=== PATIENT | female | born 1995 | race Caucasian/White ===

== ENCOUNTER 2017-02-09 13:01 | Emergency (ER) | payer OTHER ==
[~2017-02-09 13:01] MED LIST: Iopamidol 370 76% 100 ML VIAL ONE
[2017-02-09 13:52] LABS: #Basophils 0.1 thou/uL (0.0-0.2); #Eosinphils 0.1 thou/uL (0.0-0.7); #Lymphocytes 1.4 thou/uL (1.20-3.40); #Monocytes 0.6 thou/uL (0.11-0.59); #Neutrophils 12.4 thou/uL (1.40-6.50); %Basophils 0.5 % (0.0-1.0); %Eosinophils 0.8 % (0.0-10.0); %Lymphocytes 9.8 % (21.0-51.0); %Monocytes 3.9 % (0.0-10.0); %Neutrophils 84.9 % (42.0-75.0); Hemoglobin 14.1 g/dL (12.0-16.0); Mean Corpuscular Hemoglobin 27.5 pg (27.0-31.0); Mean Corpuscular Volume 85.9 fl (81.0-99.0); Mean Platelet Volume 10.2 fL (7.4-10.4); Platelet Count 207 thou/uL (130-400); RBC Distribution Width 12.4 % (11.5-14.5); Red Blood Cell (RBC) Count 5.12 mill/uL (4.20-5.40); White Blood Cell (WBC) Count 14.6 thou/uL (4.8-10.8)
--- NOTE | 2017-02-09 13:55 | RAD ---
PA AND LATERAL VIEWS OF THE CHEST: History: Dyspnea. FINDINGS: The cardiomediastinum is normal. The lungs are expanded and clear. The bony thorax is normal. IMPRESSION: Normal exam. POS: [facility]
[2017-02-09 14:07] LABS: ALT (SGPT) 37 U/L (8-55); AST (SGOT) 51 U/L (5-34); Albumin 4.5 g/dL (3.5-5.0); Alkaline Phosphatase 135 U/L (40-150); Anion Gap 19 mmol/L (10-20); BUN (Urea Nitrogen) 11 mg/dL (7.0-18.7); Calc. Creatinine Clearance 0 mL/min (70-130); Calcium 10.2 mg/dL (7.8-10.44); Carbon Dioxide 23 mmol/L (22-29); Chloride 106 mmol/L (98-107); Estimated GFR-MDRD 74; Globulin 3.2 g/dL (2.4-3.5); Glucose 91 mg/dL (70-105); Potassium 3.5 mmol/L (3.5-5.1); Protein, Total 7.7 g/dL (6.0-8.3); Sodium 144 mmol/L (136-145)
[2017-02-09 14:12] LABS: CKMB 1.5 ng/mL (0-6.6); Troponin I Less than 0.010 ng/mL (< 0.028)
[2017-02-09] MEDS ORDERED: Ondansetron HCl/PF 4 MG/2 ML Vial ONE (14:26)
[2017-02-09] MEDS ORDERED: Mag-Al Plus 1200 MG/1200 MG/120 MG/30 ML UDCUP ONE (14:26)
[2017-02-09] MEDS ORDERED: Morphine 4 MG/ML Carpuject ONE (14:26)
[2017-02-09] MEDS ORDERED: Lidocaine Viscous Sol 2% 15 ml UD Cup ONE (14:27)
--- NOTE | 2017-02-09 15:49 | CT ---
CT ANGIOGRAM CHEST 02/09/17 HISTORY: Chest pain. COMPARISON: Chest radiograph same day. FINDINGS: CT angiogram chest performed after the intravenous administration of contrast. 3D rendering is provid ed. No proximal segmental pulmonary arterial filling defect. Heart size is normal. No dilatation of p ulmonary arteries or the pulmonary trunk. No aneurysmal dilatation of the aorta. No pericardial effu octaviano. No mediastinal adenopathy. Exam is done in somewhat of a delayed phase as there is contrast enhancement of the renal collecting systems. No pneumothorax. No focal air space consolidation. No pleural effusion. Small right perifissural nodule of the right major fissure. No displaced rib fracture. IMPRESSION: 1. No pulmonary arterial filling defect. 2. No pneumonia. 3. No findings to explain patient's chest pain. POS: [facility]
--- NOTE | 2017-03-19 15:48 | EKG ---
Test Reason : Blood Pressure : / mmHG Vent. Rate : 076 BPM Atrial Rate : 076 BPM P-R Int : 106 ms QRS Dur : 084 ms QT Int : 422 ms P-R-T Axes : 055 059 052 degrees QTc Int : 474 ms Poor data quality, interpretation may be adversely affected Sinus rhythm with short OR Otherwise normal ECG Confirmed by KELLY MAYEN D.O. ([id number]), makeup editor SARAH FREED ([id number] on 03/19/2017 3:47:57 PM Referred By: Confirmed By:KELLY MAYEN D.O.
== END 2017-02-09 16:17 | disposition home or self-care (01) ==
LOC: SCSER 13:01
DX: R07.89 Other chest pain (principal)
CPT/HCPCS: 71046; 71275; 80053; 82553; 83690; 83880; 84484; 85025; 85379; 93005; 96374; 96375; J2270; J2405

== ENCOUNTER 2017-02-23 10:53 | Outpatient (CLI) | payer OTHER ==
[2017-02-23 12:14] LABS: #Eosinphils 0.3 thou/uL (0.0-0.7); #Monocytes 0.5 thou/uL (0.11-0.59); #Neutrophils 5.4 thou/uL (1.40-6.50); %Basophils 0.6 % (0.0-1.0); %Eosinophils 3.2 % (0.0-10.0); %Lymphocytes 24.4 % (21.0-51.0); %Monocytes 6.1 % (0.0-10.0); %Neutrophils 65.7 % (42.0-75.0); Hemoglobin 13.1 g/dL (12.0-16.0); Mean Corpuscular HGB CONC 32.2 g/dL (32.0-36.0); Mean Corpuscular Volume 86.8 fl (81.0-99.0); Mean Platelet Volume 9.6 fL (7.4-10.4); Platelet Count 193 thou/uL (130-400); RBC Distribution Width 12.8 % (11.5-14.5); Red Blood Cell (RBC) Count 4.68 mill/uL (4.20-5.40); White Blood Cell (WBC) Count 8.3 thou/uL (4.8-10.8)
[2017-02-23 12:34] LABS: ALT (SGPT) 30 U/L (8-55); AST (SGOT) 28 U/L (5-34); Albumin 4.3 g/dL (3.5-5.0); Alkaline Phosphatase 93 U/L (40-150); Anion Gap 14 mmol/L (10-20); BUN (Urea Nitrogen) 10 mg/dL (7.0-18.7); Bilirubin, Direct 0.3 mg/dL (0.1-0.3); Bilirubin, Total 0.7 mg/dL (0.2-1.2); Calc. Creatinine Clearance 0 mL/min (70-130); Calcium 10.4 mg/dL (7.8-10.44); Carbon Dioxide 24 mmol/L (22-29); Chloride 105 mmol/L (98-107); Estimated GFR-MDRD 74; Glucose 66 mg/dL (70-105); Potassium 3.9 mmol/L (3.5-5.1); Protein, Total 7.1 g/dL (6.0-8.3); Sodium 139 mmol/L (136-145)
[2017-02-23 12:36] LABS: BHCG - Serum Negative (NEGATIVE); Pregs Control Background? CLEAR/WHITE (CLR/WHITE); Pregs Control Bar Appear? YES (CONTROL BAR)
== END 2017-02-23 10:54 | disposition home or self-care (01) ==
LOC: LABBT 10:53
PROVIDERS: ATTEND Surgery
DX: Z01.812 Encounter for preprocedural laboratory examination (principal); K80.20 Calculus of gallbladder without cholecystitis without obstruction
CPT/HCPCS: 80048; 80076; 84703; 85025

== ENCOUNTER 2017-03-01 07:57 | Day surgery (SDC) | payer OTHER ==
[2017-02-23 11:56] VITALS: BMI 32.9
[2017-03-01] MEDS ORDERED: Lidocaine 2% w/Epinephrine 1:200K 20 ML VIAL ONE (09:33)
[2017-03-01] MEDS ORDERED: Bupivacaine 0.25% HCL 30 ML VIAL ONE (09:33)
[2017-03-01] MEDS ORDERED: HYDROmorphone 0.5 MG/0.5 ML SYRINGE ONE (09:40)
[2017-03-01] MEDS ORDERED: Midazolam HCl 2 mg/2 ml Vial ONE (09:40)
[2017-03-01] MEDS ORDERED: Fentanyl 100 MCG/2 ML VIAL ONE ×2 (09:40→11:09)
[2017-03-01] MEDS ORDERED: Promethazine HCl 25 MG/ML VIAL ONE (09:43)
[2017-03-01] MEDS ORDERED: CEFAZOLIN/Water 2 GM/20 ML SYRINGE ONE (09:49)
[2017-03-01] MEDS ORDERED: SUGAMMADEX SODIUM 200 MG/2 ML VIAL ONE (10:34)
--- NOTE | 2017-03-01 11:54 | OP ---
DATE OF PROCEDURE: 03/01/2017 PREOPERATIVE DIAGNOSIS: Chronic cholecystitis. POSTOPERATIVE DIAGNOSIS: Chronic cholecystitis. PROCEDURE PERFORMED: Laparoscopic cholecystectomy. SURGEON: Ethan Turpin M.D. ANESTHESIA: General. ESTIMATED BLOOD LOSS: Minimal. COMPLICATIONS: None. SPECIMEN: Gallbladder. FINDINGS: Chronic cholecystitis. PROCEDURE IN DETAIL: The patient was taken to the operating room and laid supine on the operating ro om table. After general anesthetic was obtained, the abdomen was prepped and draped in a sterile fas hion. A curved incision was made below the umbilicus. Cautery was used to dissect down to the umbil ical fascia. Umbilical fascia was incised and held up using a Danny. The abdominal cavity was ente red using a Crystal clamp. Holding stitch of Vicryl was placed on each side of the fascia. Kincaid tro car was placed. High-flow pneumoperitoneum was obtained. An upper midline 5-mm port and two right u pper quadrant 5-mm ports were placed under direct camera visualization. The gallbladder was retracte d from the gallbladder fossa. The peritoneum of the gallbladder was opened anteriorly and posteriorl y. The critical view triangle was seen showing only the cystic duct and cystic artery branching from medial to lateral. There were no other branching structures. Two clips were placed proximally on t he cystic duct and one laterally. It was cut using laparoscopic scissors. The cystic artery was david en in the same way. Electrocautery was then used to dissect the gallbladder out of the gallbladder f gricelda. The gallbladder was placed in an Endo catch bag and brought out through the Kincaid. There was no bleeding or bile in the liver bed. The cystic duct stump and cystic artery stump were intact wit hout evidence of extravasation or bleeding. All port sites were infiltrated using local anesthesia. All ports were removed under camera visualization. Pneumoperitoneum was let down. The Vicryl was u sed to close the fascial defect below the umbilicus. All incisions were irrigated and closed using 4 -0 Monocryl and DermaBond. The patient was en route to Recovery in stable condition. All instrument counts, needle counts and lap counts were correct.
[2017-03-01] MEDS ORDERED: Ondansetron HCl/PF 4 MG/2 ML Vial ONE (13:01)
[2017-03-01] MEDS ORDERED: Propofol 200 MG/20 ML VIAL ONE (13:01)
[2017-03-01] MEDS ORDERED: Dexamethasone 20 MG/5 ML VIAL ONE (13:01)
[2017-03-01] MEDS ORDERED: Lidocaine 1% PF 5 ML VIAL ONE (13:01)
[2017-03-01] MEDS ORDERED: Glycopyrrolate 0.2 MG/ML 5 ML SYRINGE ONE (13:01)
[2017-03-01] MEDS ORDERED: Metoclopramide HCl 10 MG/2 ML VIAL ONE (13:01)
[2017-03-01] MEDS ORDERED: Ketorolac Tromethamine 30 MG/ML VIAL ONE (13:01)
== END 2017-03-01 12:50 | disposition home or self-care (01) ==
LOC: SDC 07:57
PROVIDERS: ATTEND Surgery
PROC: 0FT44ZZ Resection of Gallbladder, Percutaneous Endoscopic Approach (ICD-10-PCS; principal; 2017-03-01)
DX: K80.10 Calculus of gallbladder with chronic cholecystitis without obstruction (principal); Z90.49 Acquired absence of other specified parts of digestive tract; Z98.891 History of uterine scar from previous surgery
CPT/HCPCS: 88304; 96374; J1170; J2250; J2550; J3010; S0020

== ENCOUNTER 2017-04-05 10:46 | Observation (INO) | payer OTHER ==
[2017-04-05] MEDS ORDERED: Promethazine HCl 25 MG/ML VIAL ONE (11:36)
[2017-04-05 11:46] LABS: ALT (SGPT) 25 U/L (8-55); AST (SGOT) 21 U/L (5-34); Albumin 4.5 g/dL (3.5-5.0); Alkaline Phosphatase 76 U/L (40-150); Anion Gap 20 mmol/L (10-20); BHCG - Serum Negative (NEGATIVE); BUN (Urea Nitrogen) 15 mg/dL (7.0-18.7); Bilirubin, Total 1.6 mg/dL (0.2-1.2); Calc. Creatinine Clearance 0 mL/min (70-130); Calcium 9.5 mg/dL (7.8-10.44); Carbon Dioxide 20 mmol/L (22-29); Chloride 106 mmol/L (98-107); Estimated GFR-MDRD Greater than 90; Globulin 3.1 g/dL (2.4-3.5); Glucose 90 mg/dL (70-105); Lipase 15 U/L (8-78); Potassium 4.5 mmol/L (3.5-5.1); Pregs Control Background? CLEAR/WHITE (CLR/WHITE); Pregs Control Bar Appear? YES (CONTROL BAR); Protein, Total 7.6 g/dL (6.0-8.3); Sodium 141 mmol/L (136-145)
[2017-04-05 11:49] LABS: Hemoglobin 14.2 g/dL (12.0-16.0); Mean Corpuscular HGB CONC 31.8 g/dL (32.0-36.0); Mean Corpuscular Hemoglobin 25.9 pg (27.0-31.0); Mean Corpuscular Volume 81.4 fl (81.0-99.0); Mean Platelet Volume 12.2 fL (7.4-10.4); Platelet Count 218 thou/uL (130-400); Red Blood Cell (RBC) Count 5.48 mill/uL (4.20-5.40); White Blood Cell (WBC) Count 15.4 thou/uL (4.8-10.8)
[2017-04-05 12:00] LABS: Band 12 % (5-11); Lymphocytes 5 % (21-51); MDiff Complete? YES; Monocytes 4 % (0-10); Neutrophil 79 % (42-75); PLT Morphology Comment Appears Adequate; RBC Morphology Normal
[2017-04-05 12:20] LABS: Bilirubin Negative (Negative); Blood, Urine Moderate (Negative); Clarity Clear (Clear); Glucose, Urine (Dipstick) Negative (Negative); Leukocyte Trace (Negative); Nitrite Negative (Negative); Protein, Urine (Dipstick) Trace mg/dL (Neg-Trace); Urobilinogen 0.2 mg/dL (0.2-1.0); pH, Urine 8.5 (5.0-9.0)
[2017-04-05 12:27] LABS: RBC/HPF 0-3 HPF (0-3); WBC/HPF 0-3 HPF (0-3)
[2017-04-05 12:29] LABS: Bacteria/HPF 2+ HPF (None Seen)
[2017-04-05] MEDS ORDERED: Acetaminophen 500 MG TAB ONE (13:44)
[2017-04-05] MEDS ORDERED: Ondansetron HCl/PF 4 MG/2 ML Vial ONE (16:08)
[2017-04-05] MEDS ORDERED: diphenhydrAMINE 50 MG/ML VIAL ONE (17:29)
[2017-04-05] MEDS ORDERED: Prochlorperazine 10 MG/2 ML VIAL ONE (17:29)
[2017-04-05] MEDS ORDERED: Ondansetron HCl/PF 4 MG/2 ML Vial IVP PRN ×2 (18:56→18:58)
[2017-04-05] MEDS ORDERED: Loperamide HCl 2 MG CAP PO PRN (18:56)
[2017-04-05] MEDS ORDERED: Ondansetron ODT 4 MG TAB SL PRN (18:58)
[2017-04-05 19:00] VITALS: BMI 34.5
[2017-04-05] MEDS ORDERED: Dextrose 5 % And 0.9 % NaCl 1,000 ML IV SCH (19:00)
[2017-04-05] MEDS ORDERED: Acetaminophen 325 MG TAB PO PRN (19:26)
--- NOTE | 2017-04-05 20:21 | ULT ---
RENAL SONOGRAM 04/05/17 HISTORY: Pyelonephritis. FINDINGS: Right kidney is 11.2 cm and left is 10.8 cm. Each has a normal sonographic appearance without evidenc e or mass, stone or hydronephrosis. Urinary bladder is incompletely distended. IMPRESSION: No evidence of urinary tract obstruction. No significant abnormalities are demonstrated. POS: [facility]
[2017-04-05] MEDS: Dextrose 5 % And 0.9 % NaCl 1,000 ML IV SCH (20:30)
[2017-04-06] MEDS: Dextrose 5 % And 0.9 % NaCl 1,000 ML IV SCH ×2 (04:00→09:54)
[2017-04-06 06:11] LABS: #Lymphocytes 0.7 thou/uL (1.20-3.40); #Monocytes 0.3 thou/uL (0.11-0.59); #Neutrophils 4.9 thou/uL (1.40-6.50); %Basophils 0.2 % (0.0-1.0); %Eosinophils 0.8 % (0.0-10.0); %Monocytes 4.8 % (0.0-10.0); %Neutrophils 82.3 % (42.0-75.0); Hemoglobin 10.7 g/dL (12.0-16.0); Mean Corpuscular HGB CONC 31.6 g/dL (32.0-36.0); Mean Corpuscular Volume 85.6 fl (81.0-99.0); Mean Platelet Volume 9.4 fL (7.4-10.4); Platelet Count 137 thou/uL (130-400); Red Blood Cell (RBC) Count 3.98 mill/uL (4.20-5.40); White Blood Cell (WBC) Count 5.9 thou/uL (4.8-10.8)
--- NOTE | 2017-04-06 06:14 | HP ---
PRIMARY CARE PHYSICIAN: Dr. Shon Alvares. CHIEF COMPLAINT: Weakness, dehydration. HISTORY OF PRESENT ILLNESS: This is a 21-year-old female patient of Dr. Shon Alvares who has been i n her usual state of health. She had a laparoscopic cholecystectomy just over a month ago. She nilda trisha well with no complications. She also is status post from 01/2017 and has been doing quite well since that time. She started developing nausea and vomiting last night about 10:00 p.m. a nd has had persistent nausea, vomiting, and diarrhea every half hour to an hour since then. She rohan es any cough. She has not had a fever until she arrived to the emergency department today and develo ped a temperature up to 100.6. She has had difficulty keeping anything down. In the emergency depar tment, she was found to be orthostatic with episodes of tachycardia whenever she would stand. She wa s given 3 liters of IV fluids in the ER and continued to be orthostatic. She is now being admitted f or further evaluation and treatment. PAST MEDICAL HISTORY: None. MEDICATIONS: Include Mirena. PAST SURGICAL HISTORY: Laparoscopic cholecystectomy in 02/2017, in 01/2017, appendectomy several years ago. SOCIAL HISTORY: She is . She works at a desk job. She has 1 child at home that has not been ill. REVIEW OF SYSTEMS: As per the history of present illness. General: She denies any recent fevers or chills. HEENT: She denies headache, denies visual or hearing changes. Denies cough or congestion. Cardiac: Denies chest pain, shortness of breath, palpitations. Pulmonary: Denies cough, hemoptys is. Gastrointestinal: Positive for nausea, vomiting. Positive for diarrhea, positive for abdominal cramping. Again, no melena, no hematochezia. Genitourinary: No history of urinary tract infection s. She does admit to an occasional discomfort when she urinates. No blood in her urine as she is no luis. Neurologic: Positive weakness. No seizures or syncope. PHYSICAL EXAMINATION: VITAL SIGNS: Again, T-max up to 100.6, pulse up to 132, respirations 18, blood pressure 117/83, puls e ox 100% on room air. GENERAL: She is awake and alert, in no acute distress. She does appear uncomfortable with slight fl ushing of her face. Mucosa is dry. NECK: Supple. HEART: Tachycardic. LUNGS: Clear bilaterally. ABDOMEN: Positive bowel sounds throughout, soft, nontender, nondistended. No notable CVA tenderness . MUSCULOSKELETAL: Cranial nerves II through XII are grossly intact. LABORATORY DATA AND X-RAY FINDINGS: White blood cell count 15,400, hemoglobin and hematocrit are 14. 2 and 44.6, platelets 218. She does have a slight left shift with 12% bands, 79% neutrophils. Sodiu m 141, potassium 4.5, chloride 106, CO2 of 20, BUN and creatinine are 15 and 0.77, total bilirubin wa s slightly elevated at 1.6. LFTs were normal. Lipase was normal. Serum test was negative . Urinalysis positive for ketones, positive for blood, trace leukocyte esterase, 2+ bacteria. ASSESSMENT AND PLAN: This is a 21-year-old female patient with sudden onset of nausea and vomiting, now with moderate dehydration. 1. Dehydration. We will continue IV fluid resuscitation and replacement. 2. Gastroenteritis. We will start Zofran p.r.n. nausea and vomiting as well as Imodium for the diar lauren. 3. Urinary tract infection with elevated white blood cell count, we need to rule out pyelonephritis. We will start IV antibiotics empirically. We are waiting on the urine cultures as well as obtain a renal ultrasound.
[2017-04-06 06:16] LABS: ALT (SGPT) 12 U/L (8-55); AST (SGOT) 11 U/L (5-34); Albumin 3.1 g/dL (3.5-5.0); Alkaline Phosphatase 55 U/L (40-150); Anion Gap 9 mmol/L (10-20); BUN (Urea Nitrogen) 7 mg/dL (7.0-18.7); Bilirubin, Total 1.3 mg/dL (0.2-1.2); Calc. Creatinine Clearance 170 mL/min (70-130); Calcium 7.4 mg/dL (7.8-10.44); Carbon Dioxide 22 mmol/L (22-29); Chloride 111 mmol/L (98-107); Estimated GFR-MDRD Greater than 90; Glucose 86 mg/dL (70-105); Potassium 3.1 mmol/L (3.5-5.1); Protein, Total 5.1 g/dL (6.0-8.3); Sodium 139 mmol/L (136-145)
--- NOTE | 2017-04-06 07:44 | PRG ---
DATE OF SERVICE: 04/06/2017 Ms. Vázquez is feeling better. She has had no further vomiting since yesterday's admission. PHYSICAL EXAMINATION: VITAL SIGNS: Temperature 97.4, BP 103/63. LUNGS: Clear. ABDOMEN: Soft, nontender, bowel sounds are present and active. LABORATORY: White blood count is 5.9, hemoglobin 10.7, hematocrit 34.0. Sodium 139, potassium 3.1, chloride 111, CO2 22, BUN 0.74. IMPRESSION: 1. Gastroenteritis. 2. Possible urinary tract infection. PLAN: We will start on regular diet. We will reexamine her in 4 hours she if she can tolerate disch arge.
[2017-04-06 12:37] VITALS: BP 121/73; TEMP 98.5
--- NOTE | 2017-04-06 12:55 | DIS ---
DATE OF ADMISSION: 04/05/2017 DATE OF DISCHARGE: 04/06/2017 DISCHARGE DIAGNOSIS: Gastroenteritis, probably viral. HOSPITAL SUMMARY: A 21-year-old female status post recent cholecystectomy developed vomiting, diarrh ea, became intractable, requiring admission. She was placed on IV fluids. Additionally, she was daysi winifred on Cipro for possible UTI. The patient tolerated all medicines well. She was able to tolerate oral intake by the next day. She did not have any fever through the night. She was discharged home on Zofran 4 mg every six hours as needed for nausea as well as Lomotil as needed for diarrhea. She will be back for followup on a p.r .n. basis.
== END 2017-04-06 14:34 | disposition home or self-care (01) ==
LOC: SCSER 10:46 → 2SW 18:20
PROVIDERS: ADMIT Family Medicine; ATTEND Family Medicine
DX: K52.9 Noninfective gastroenteritis and colitis, unspecified (principal); E86.0 Dehydration; Z88.1 Allergy status to other antibiotic agents; Z97.5 Presence of (intrauterine) contraceptive device; Z90.49 Acquired absence of other specified parts of digestive tract; Z98.891 History of uterine scar from previous surgery
CPT/HCPCS: 36415; 76770; 80053; 81003; 81015; 83605; 83690; 84703; 85025; 87086; 93005; 96361; 96365; 96367; 96375; 96376; G0378; J0780; J1200; J1956; J2405; J2550; J7042